=== PATIENT | male | born 1990 | race Caucasian/White ===

== ENCOUNTER 2016-12-26 15:58 | Emergency (ER) | payer SELFPAY ==
[2016-12-26 16:08] VITALS: BP 146/75; PULSE 98; TEMP 98.7; BMI 20.2
--- NOTE | 2016-12-26 16:58 | PDOC ---
History of Present Illness - General History Source: Patient Exam Limitations: No Limitations - History of Present Illness Initial Comments: 12/26/16 16:58 26 y/o M with no significant PMHx presents to the ED with a left thumb laceration. Patient was cutting bread with a knife and cut his finger. Denies any other complaints. Denies fever, chills. <Aranza Calhoun A - Last Filed: 12/26/16 16:58> <Florecita Miller S - Last Filed: 12/26/16 17:06> - General Chief Complaint: Injury Stated Complaint: LEFT THUMB LACERATION Time Seen by Provider: 12/26/16 16:04 Past History <Aranza Calhoun - Last Filed: 12/26/16 16:58> - Past Medical History COPD: No Other medical history: DENIES - Suicide/Smoking/Psychosocial Hx Smoking History: Never smoked Have you smoked in the past 12 months: No Information on smoking cessation initiated: No Hx Alcohol Use: No Drug/Substance Use Hx: No Substance Use Type: None <Florecita Miller S - Last Filed: 12/26/16 17:06> - Past Medical History Allergies/Adverse Reactions: Allergies Allergy/AdvReac Type Severity Reaction Status Date / Time No Known Allergies Allergy Verified 12/26/16 16:02 Home Medications: Ambulatory Orders NK [No Known Home Medication] 12/26/16 Review of Systems - Review of Systems Able to Perform ROS?: Yes Constitutional: No: Chills, Diaphoresis, Fever HEENTM: No: Symptoms Reported Respiratory: No: Cough, Shortness of Breath Cardiac (ROS): No: Chest Pain, Palpitations, Syncope ABD/GI: No: Diarrhea, Nausea, Vomiting : No: Symptoms Reported Musculoskeletal: No: Back Pain, Joint Pain, Muscle Pain, Neck Pain Integumentary: Yes: Other (left thumb laceration) Neurological: No: Headache, Numbness, Tingling, Dizziness All Other Systems: Reviewed and Negative <Aranza Calhoun - Last Filed: 12/26/16 16:58> *Physical Exam - Vital Signs Last Vital Signs Temp Pulse Resp BP Pulse Ox 98.7 F 98 H 18 146/75 97 12/26/16 15:58 12/26/16 15:58 12/26/16 15:58 12/26/16 15:58 12/26/16 15:58 - Physical Exam General Appearance: Yes: Nourished, Appropriately Dressed. No: Apparent Distress Musculoskeletal: positive: Normal Inspection Extremity: positive: Normal Capillary Refill, Normal Range of Motion, Other ( superficial avulsion/laceration of the distal left thumb of an area 0.5 cm). negative: Cyanosis Integumentary: positive: Dry, Warm Neurologic: positive: Fully Oriented, Alert, Normal Mood/Affect <Aranza Calhoun - Last Filed: 12/26/16 16:58> - Vital Signs Last Vital Signs Temp Pulse Resp BP Pulse Ox 98.7 F 98 H 18 146/75 97 12/26/16 15:58 12/26/16 15:58 12/26/16 15:58 12/26/16 15:58 12/26/16 15:58 <Florecita Miller - Last Filed: 12/26/16 17:06> *DC/Admit/Observation/Transfer - Attestations Scribe Attestion: 12/26/16 17:01 Documentation prepared by Aranza Calhoun, acting as biomedical engineering technician for Florecita Miller MD. <Aranza Calhoun - Last Filed: 12/26/16 16:58> - Discharge Dispostion Admit: No <Florecita Miller - Last Filed: 12/26/16 17:06> Diagnosis at time of Disposition: Laceration of thumb Qualifiers: Encounter type: initial encounter Damage to nail status: without damage Foreign body presence: without foreign body Laterality: left Qualified Code(s): S61.012A - Laceration without foreign body of left thumb without damage to nail , initial encounter; S61.012A - Laceration without foreign body of left thumb without damage to nail, initial encounter - Discharge Dispostion Disposition: HOME Condition at time of disposition: Improved - Referrals Referrals: Ariel Wallace MD [Staff Physician] - - Patient Instructions Printed Discharge Instructions: DI for Minor Laceration Additional Instructions: KEEP CLEAN AND DRY, DAILY DRESSING CHANGE
[2016-12-26] MEDS ORDERED: DIPHTH,PERTUSS(ACELL),TET 0.5 ML DISP.SYRIN IM ONE (19:53)
== END 2016-12-26 17:15 | disposition home or self-care (01) ==
LOC: FER 15:58
PROC: 3E0234Z Introduction of Serum, Toxoid and Vaccine into Muscle, Percutaneous Approach (ICD-10-PCS; principal; 2016-12-26)
PROC: 0HQGXZZ Repair Left Hand Skin, External Approach (ICD-10-PCS; 2016-12-26)
DX: S61.012A Laceration without foreign body of left thumb without damage to nail, initial encounter (principal); W26.0XXA Contact with knife, initial encounter; Y93.G1 Activity, food preparation and clean up; Y92.9 Unspecified place or not applicable
CPT/HCPCS: 90715; 99283-25